=== PATIENT | female | born 1990 | race Caucasian/White ===

== ENCOUNTER 2021-05-09 13:41 | Inpatient (IN) | payer OTHER ==
[~2021-05-09] VITALS: Ht 154.9 cm; Wt 90.0 kg
[2021-05-09] MEDS ORDERED: PRENATAL TABLE1 EAC2 (14:47)
[2021-05-09] MEDS ORDERED: SERT50 PO (14:47)
[2021-05-09 15:09] LABS: BASOPHILS ABSOLUTE AUTO 0.06 K/mm3 (0.00-0.23); BASOPHILS PERCENT AUTO 1 % (0-2); EOSINOPHILS ABSOLUTE AUTO 0.12 K/mm3 (0.00-0.68); EOSINOPHILS PERCENT AUTO 1 % (0-6); Hematocrit 39.8 % (33.0-51.0); Hemoglobin 14.1 g/dL (11.5-16.0); IMMATURE GRAN ABSOLUTE AUTO 0.06 K/mm3 (0.00-0.10); IMMATURE GRAN PERCENT AUTO 1 % (0-1); LYMPHOCYTES ABSOLUTE AUTO 1.09 K/mm3 (0.84-5.20); LYMPHOCYTES PERCENT AUTO 8 % (21-46); MONOCYTES ABSOLUTE AUTO 0.91 K/mm3 (0.16-1.47); MONOCYTES PERCENT AUTO 7 % (4-13); Mean Corpuscular HGB 30.7 pg (26.0-34.0); Mean Corpuscular HGB Conc 35.4 g/dL (31.5-36.5); Mean Corpuscular Volume 87 fL (80-100); Mean Platelet Volume 10.9 fL (9.1-12.4); NEUTROPHILS ABSOLUTE AUTO 10.74 K/mm3 (1.96-9.15); NEUTROPHILS PERCENT AUTO 83 % (41-73); Platelet Count 277 K/mm3 (150-400); RDW Coefficient Variation 12.8 % (11.7-14.2); RDW Standard Deviation 39.9 fL (35.1-46.3); Red Blood Cell Count 4.59 M/mm3 (3.80-5.20); White Blood Cell Count 12.98 K/mm3 (4.00-11.30)
[2021-05-09 15:34] LABS: SARS-Cov-2 (COVID-19) PCR, MMC NEGATIVE (NEGATIVE)
--- NOTE | 2021-05-10 12:48 | NUR ---
REFUSING TORADOL AT THIS TIME
[2021-05-11 05:44] LABS: Hematocrit 34.2 % (33.0-51.0); Hemoglobin 12.1 g/dL (11.5-16.0); Mean Corpuscular HGB 31.3 pg (26.0-34.0); Mean Corpuscular HGB Conc 35.4 g/dL (31.5-36.5); Mean Corpuscular Volume 89 fL (80-100); Mean Platelet Volume 10.6 fL (9.1-12.4); Platelet Count 223 K/mm3 (150-400); RDW Coefficient Variation 13.1 % (11.7-14.2); RDW Standard Deviation 42.1 fL (35.1-46.3); Red Blood Cell Count 3.86 M/mm3 (3.80-5.20); White Blood Cell Count 12.21 K/mm3 (4.00-11.30)
[2021-05-11] MEDS ORDERED: IBUP800 PO (09:28)
--- NOTE | 2021-05-11 10:29 | NUR ---
PT DISCHARGED HOME WITH NB. DISCHARGE TEACHING COMPLETED. IV REMOVED. ALL PERSONAL BELONGINGS RETURNED TO PT. PT CHOSE TO CARRY NB OUT IN [facility]. FOLLOW UP APPOINTMENT MADE.
== END 2021-05-11 10:30 | disposition home or self-care (01) | DRG 807 ==
LOC: OBS 13:41 → BC 13:44 → OBS 13:52 → BC 13:54
PROVIDERS: ADMIT Nurse Practitioner Obstetrics & Gynecology
PROC: 10E0XZZ Delivery of Products of Conception, External Approach (ICD-10-PCS; principal; 2021-05-10)
PROC: 0HQ9XZZ Repair Perineum Skin, External Approach (ICD-10-PCS; 2021-05-10)
PROC: 3E0R3BZ Introduction of Anesthetic Agent into Spinal Canal, Percutaneous Approach (ICD-10-PCS; 2021-05-10)
PROC: 00HU33Z Insertion of Infusion Device into Spinal Canal, Percutaneous Approach (ICD-10-PCS; 2021-05-10)
DX: O48.0 Post-term pregnancy (principal); Z37.0 Single live birth; Z3A.41 41 weeks gestation of pregnancy; Z20.822 Contact with and (suspected) exposure to COVID-19; O70.0 First degree perineal laceration during delivery; O74.6 Other complications of spinal and epidural anesthesia during labor and delivery; I95.9 Hypotension, unspecified; O99.344 Other mental disorders complicating childbirth; F41.9 Anxiety disorder, unspecified; F32.9 Major depressive disorder, single episode, unspecified; Z79.899 Other long term (current) drug therapy
CPT/HCPCS: 36415; 51702; 85025; 85027; 86850; 86900; 86901; A9270; J1885; J2001; J2210; J2590; J3010; J7120; U0004

== ENCOUNTER → 2024-03-13 | Outpatient (CLI) | payer OTHER ==
[~2024-03-13] MED LIST: IBUP800 PO; PRENATAL TABLE1 EAC2; SERT50 PO
[2024-03-13 18:51] LABS: Protein, Urine Quantitative <5.0 mg/dL (0.0-11.9)
== END ==
LOC: LAB SHORT 16:37 → LAB 16:37
PROVIDERS: Advanced Practice Midwife
DX: Z36.9 Encounter for antenatal screening, unspecified (principal)
CPT/HCPCS: 81050; 82570; 84156

== ENCOUNTER → 2024-09-15 | Outpatient (CLI) | payer OTHER ==
[2024-09-15 11:57] LABS: Protein, Urine Quantitative 8.6 mg/dL (0.0-11.9)
== END ==
LOC: LAB SHORT 07:00 → LAB 07:00
PROVIDERS: Advanced Practice Midwife
DX: O13.3 Gestational [pregnancy-induced] hypertension without significant proteinuria, third trimester (principal); Z3A.00 Weeks of gestation of pregnancy not specified
CPT/HCPCS: 81050; 84156

== ENCOUNTER 2024-10-03 07:04 | Inpatient (IN) | payer OTHER ==
[~2024-10-03] VITALS: Ht 154.9 cm; Wt 95.5 kg
[2024-10-03] VITALS (33 sets, daily range): BP systolic 79–139; BP diastolic 44–88
[2024-10-03] MEDS ORDERED: Methylergonovine Maleate 0.2MG / ML 1ML Amp IM PRN ×2 (07:15→16:55)
[2024-10-03] MEDS ORDERED: Oxytocin 10 Unit / ML Vial IM PRN (07:15)
[2024-10-03] MEDS ORDERED: Misoprostol 200 MCG Tab BC PRN (07:15)
[2024-10-03] MEDS ORDERED: Lactated Ringer's 1,000 ML IV PRN ×3 (07:15)
[2024-10-03] MEDS ORDERED: Misoprostol 200 MCG Tab PR PRN (07:15)
[2024-10-03] MEDS ORDERED: Lactated Ringer's 1,000 ML IV SCH ×3 (07:15→16:55)
[2024-10-03] MEDS ORDERED: ePHEDrine Sulfate 50 MG/ML 1ML Injection XX PRN (07:15)
[2024-10-03] MEDS ORDERED: OXYTOCIN/RINGER'S LACTATE 500 ML IV SCH ×2 (07:15→17:00)
[2024-10-03] MEDS ORDERED: FentaNYL 2mcg/ml-Bup 0.1% Epd 250 ML EPI PRN (07:15)
[2024-10-03] MEDS ORDERED: Carboprost Tromethamine 250 MCG/ML 1ML Amp IM PRN (07:15)
[2024-10-03] MEDS ORDERED: OXYTOCIN/RINGER'S LACTATE 500 ML IV PRN (07:15)
[2024-10-03] MEDS ORDERED: Ondansetron HCl 2 MG / ML 2ML Vial IV PRN (07:20)
[2024-10-03] MEDS ORDERED: Calcium Carbonate 500 MG Tab Chew PO PRN (07:20)
[2024-10-03] MEDS ORDERED: FentaNYL Citrate 50 MCG/ML 2 ML Injection IV PRN (07:20)
[2024-10-03] MEDS ORDERED: Acetaminophen 500 MG Tab PO PRN (07:20)
[2024-10-03] MEDS ORDERED: Tranexamic Acid 100 ML IV SCH (07:25)
[2024-10-03] MEDS ORDERED: Aspir 8181 MG PO (07:43)
[2024-10-03 08:13] LABS: BASOPHILS ABSOLUTE AUTO 0.06 K/mm3 (0.00-0.23); BASOPHILS PERCENT AUTO 1 % (0-2); EOSINOPHILS ABSOLUTE AUTO 0.18 K/mm3 (0.00-0.68); EOSINOPHILS PERCENT AUTO 2 % (0-6); Hematocrit 35.4 % (33.0-51.0); Hemoglobin 12.3 g/dL (11.5-16.0); IMMATURE GRAN ABSOLUTE AUTO 0.05 K/mm3 (0.00-0.10); IMMATURE GRAN PERCENT AUTO 1 % (0-1); LYMPHOCYTES ABSOLUTE AUTO 1.77 K/mm3 (0.84-5.20); LYMPHOCYTES PERCENT AUTO 19 % (21-46); MONOCYTES ABSOLUTE AUTO 0.82 K/mm3 (0.16-1.47); MONOCYTES PERCENT AUTO 9 % (4-13); Mean Corpuscular HGB 28.3 pg (26.0-34.0); Mean Corpuscular HGB Conc 34.7 g/dL (31.5-36.5); Mean Corpuscular Volume 81 fL (80-100); Mean Platelet Volume 9.3 fL (9.1-12.4); NEUTROPHILS ABSOLUTE AUTO 6.45 K/mm3 (1.96-9.15); NEUTROPHILS PERCENT AUTO 69 % (41-73); Platelet Count 397 K/mm3 (150-400); RDW Coefficient Variation 13.6 % (11.7-14.2); RDW Standard Deviation 39.4 fL (35.1-46.3); Red Blood Cell Count 4.35 M/mm3 (3.80-5.20); White Blood Cell Count 9.33 K/mm3 (4.00-11.30)
[2024-10-03] MEDS ORDERED: ePHEDrine Sulfate 50 MG/ML 1ML Injection ONE (13:12)
[2024-10-03] MEDS ORDERED: Misoprostol 100 MCG Tab PO PRN (15:40)
[2024-10-03] MEDS ORDERED: Ibuprofen 400 MG Tab PO PRN (15:45)
[2024-10-03] MEDS ORDERED: Acetaminophen 325 MG TABLET PO PRN (15:45)
[2024-10-03] MEDS ORDERED: Benzocaine Topical Anesthetic Spray 60GM TOP PRN (16:55)
[2024-10-03] MEDS ORDERED: Docusate Sodium 100 MG Cap PO PRN (16:55)
[2024-10-03] MEDS ORDERED: Lanolin Cream TOP PRN (16:55)
[2024-10-03] MEDS ORDERED: Ketorolac Tromethamine 30mg Vial IV PRN (16:55)
[2024-10-03] MEDS ORDERED: Witch Hazel/Glycerin PADS TOP PRN (16:55)
[2024-10-03] MEDS ORDERED: Diphth,Pertuss(Acell),Tet Vac 0.5 ML VIAL IM SCH (16:55)
[2024-10-03] MEDS ORDERED: FLU VACC TS2024-25(6MOS UP)/PF 45 MCG/0.5 ML SYRINGE IM SCH (16:55)
[2024-10-03] MEDS ORDERED: OxyCODONE 5 mg/Acetamin 325 mg TABLET PO PRN (17:00)
[2024-10-03] MEDS ORDERED: Methylergonovine Maleate 0.2MG / ML 1ML Amp XX ONE (19:14)
[2024-10-03] MEDS ORDERED: Misoprostol 200 MCG Tab PO ONE (19:14)
[2024-10-04 03:29] VITALS: BP 125/82
[2024-10-04 06:36] LABS: Hemoglobin 10.7 g/dL (11.5-16.0); Mean Corpuscular HGB 28.9 pg (26.0-34.0); Mean Corpuscular HGB Conc 34.5 g/dL (31.5-36.5); Mean Corpuscular Volume 84 fL (80-100); Mean Platelet Volume 9.6 fL (9.1-12.4); Platelet Count 335 K/mm3 (150-400); RDW Coefficient Variation 13.7 % (11.7-14.2); RDW Standard Deviation 41.1 fL (35.1-46.3); White Blood Cell Count 14.46 K/mm3 (4.00-11.30)
--- NOTE | 2024-10-04 08:15 | NUR ---
PT RESTING. PT TO CALL WHEN SHE WAKES FOR NEXT FEEDING AND RN WILL ASSESS PT AND
[2024-10-04] MEDS ORDERED: Prenatal Vit/FE Fumarate/FA 1 Tab PO SCH (09:00)
[2024-10-04 09:15] VITALS: BP 122/87
[2024-10-04 12:42] VITALS: BP 106/72
--- NOTE | 2024-10-04 12:51 | NUR ---
1242: DR GONZALEZ DISCUSSED SPINAL HEADACHE AND TX OPTIONS WITH PT. PT CONSENTS TO BLOOD PATCH TO TREAT HEADACHE. PT SITTING AT EDGE OF BED FOR PROCEDURE. ONE UNSUCCESSFUL BLOOD DRAW ATTEMPT BY RAJIV ANN RN. SUCCESSFUL BLOOD DRAW USING 23G BUTTERFLY NEEDLE TO RIGHT AC BY ANNABELLA. STERILE TECHNIQUE MAINTAINED THROUGHOUT BLOOD DRAW BY ANNABELLA ASSISTED BY RAJIV ANN RN. BLOOD PATCH PERFORMED BY DR GONZALEZ. PT THEN PUT SUPINE AT 1230 AND ADVISED BY TO REMAIN SUPINE FOR 1 HOUR. PT TO TAKE IT EASY FOR THE NEXT COUPLE DAYS IN ORDER TO AVOID DISLODGING THE PATCH. PT VERBALIZED UNDERSTANDING. LIGHTS DIM IN ROOM. WILL CONTINUE TO MONITOR.
[2024-10-04 18:49] VITALS: BP 130/63
--- NOTE | 2024-10-04 19:00 | NUR ---
1740 PARKER DUFF CNM IN ROOM TO DISCUSS [place] DEPRESSION SCALE WITH PT. PT REPORTS CHRONIC DEPRESSION THAT IS CURRENTLY NO DIFFERENT THAN HER NORMAL FEELINGS. SHE REPORTS FEELING CONTROLLED WITH HER HOME ANTIDEPRESSANT THAT SHE HAS BEEN TAKING PRIOR AND DURING HER . PT HAS MEDICATION AND WILL CONTINUE TAKING MEDICATION TO CONTROL HER DEPRESSION. BOTH SPOUSE AND PT FEEL COMFORTABLE GOING HOME. PT REPORTS NO FEELINGS OF WANTING TO HURT HERSELF AND SHE FEELS THOUGH SHE CAN ADEQUATELY TAKE CARE OF HERSELF AND HER BABY. PT ALSO REPORTS HAVING A GOOD SUPPORT SYSTEM. PT GIVEN [employer] BUSINESS CARD SO THAT SHE CAN CALL THE OFFICE OR THE ROBOTICS TECHNOLOGIST PROVIDER 24-7 IF SHE BEGINS TO FEEL UNWELL. PT WILL ALSO BE RETURING TO [facility] FOR ANOTHER EVALUATION OF HER DEPRESSION ON 10/07/24.
--- NOTE | 2024-10-04 19:04 | NUR ---
1800 DISCHARGE TEACHING DONE WITH PT AND HER SPOUSE. PT VERBALIZES UNDERSTANDING OF INSTRUCTIONS AND ALL QUESTIONS ANSWERED. PT GIVEN WRITTEN INSTRUCTIONS TO TAKE HOME FOR HER REFERENCE IF NEEDED ONCE HOME.
--- NOTE | 2024-10-04 19:05 | NUR ---
1851-PT ESCORTED TO PRIVATE CAR BY ANNABELLA. PT HAS BELONGINGS WITH HER AND SPOUSE IS DRIVING. WAS CARRIED OUT BY SPOUSE AND PLACED REAR FACING IN CAR.
[2024-10-06 17:52] LABS: HEPATITIS C AB CIA INTERP Negative (Negative); HEPATITIS C ANTIBODY CIA INDEX 0.18 IV
== END 2024-10-04 18:55 | disposition home or self-care (01) | DRG 807 ==
LOC: OBS 07:04 → BC 07:07 → OBS 07:21 → BC 07:22
PROVIDERS: ADMIT Advanced Practice Midwife
PROC: 10E0XZZ Delivery of Products of Conception, External Approach (ICD-10-PCS; principal; 2024-10-03)
PROC: 4A1HXCZ Monitoring of Products of Conception, Cardiac Rate, External Approach (ICD-10-PCS; 2024-10-03)
PROC: 10907ZC Drainage of Amniotic Fluid, Therapeutic from Products of Conception, Via Natural or Artificial Opening (ICD-10-PCS; 2024-10-03)
PROC: 3E0R3BZ Introduction of Anesthetic Agent into Spinal Canal, Percutaneous Approach (ICD-10-PCS; 2024-10-03)
PROC: 00HU33Z Insertion of Infusion Device into Spinal Canal, Percutaneous Approach (ICD-10-PCS; 2024-10-03)
DX: O48.0 Post-term pregnancy (principal); Z37.0 Single live birth; O99.344 Other mental disorders complicating childbirth; F41.8 Other specified anxiety disorders; O77.0 Labor and delivery complicated by meconium in amniotic fluid; O43.123 Velamentous insertion of umbilical cord, third trimester; O13.4 Gestational [pregnancy-induced] hypertension without significant proteinuria, complicating childbirth; O99.62 Diseases of the digestive system complicating childbirth; K21.9 Gastro-esophageal reflux disease without esophagitis; Z79.899 Other long term (current) drug therapy; Z3A.41 41 weeks gestation of pregnancy; O76 Abnormality in fetal heart rate and rhythm complicating labor and delivery; O26.53 Maternal hypotension syndrome, third trimester; Z98.890 Other specified postprocedural states
CPT/HCPCS: 36415; 51702; 62273; 85025; 85027; 86803; 86850; 86900; 86901; A9270; J1885; J2210; J2405; J2590; J3010; J7120